=== PATIENT | male | born 1965 | race Caucasian/White ===

== ENCOUNTER 2022-11-26 15:38 | Outpatient (CLI) | payer MEDICAID, SELFPAY | END 2022-11-26 15:39 | disposition home or self-care (01) | LOC: AMB 11-30 13:29 | PROVIDERS: PCP Family Medicine; Visit Provider Family Medicine | DX: F10.129 Alcohol abuse with intoxication, unspecified (principal) | CPT/HCPCS: A0425; A0427 ==

== ENCOUNTER 2023-04-26 20:29 | Outpatient (CLI) | payer MEDICAID, SELFPAY | END 2023-04-26 20:30 | disposition home or self-care (01) | LOC: AMB 04-30 16:41 | PROVIDERS: PCP Family Medicine; Visit Provider Family Medicine | DX: R06.09 Other forms of dyspnea (principal) | CPT/HCPCS: A0425; A0427 ==

== ENCOUNTER 2023-04-27 16:59 | Outpatient (CLI) | payer MEDICAID, SELFPAY | END 2023-04-27 17:00 | disposition home or self-care (01) | LOC: AMB 05-01 17:21 | PROVIDERS: PCP Family Medicine; Visit Provider Family Medicine | DX: R07.89 Other chest pain (principal); F10.129 Alcohol abuse with intoxication, unspecified | CPT/HCPCS: A0425; A0427 ==

== ENCOUNTER 2023-04-30 19:39 | Outpatient (CLI) | payer MEDICAID, SELFPAY | END 2023-04-30 19:40 | disposition home or self-care (01) | LOC: AMB 05-04 11:45 | PROVIDERS: PCP Family Medicine; Visit Provider Family Medicine | DX: F10.129 Alcohol abuse with intoxication, unspecified (principal); F91.9 Conduct disorder, unspecified | CPT/HCPCS: A0425; A0429 ==

== ENCOUNTER 2023-04-30 20:05 | Emergency (ER) | payer MEDICAID, SELFPAY ==
--- NOTE | 2023-04-30 20:22 | ED_ITS ---
HPI - Alcohol General Chief Complaint: Alcohol/Intoxication Stated Complaint: Mental health Time Seen by Provider: 04/30/23 20:15 History of Present Illness HPI narrative: Patient is a 57-year-old gentle who was seen staggering around the road [address] in [place]. Since bystanders called for EMS he was found to be intoxicated and brought to the emergency room. Patient is belligerent and somewhat aggressive. He states he has not been taking any other medication but does admit to heavy drinking is found with half of 5th of vodka on him. No other complaints or concerns are noted. Related Data Home Medications Medication Instructions Recorded Confirmed celecoxib 200 mg capsule 200 mg PO BID 09/07/22 cholecalciferol (vitamin D3) 125 125 mcg PO QDAY 09/07/22 mcg (5,000 unit) capsule pantoprazole 40 mg tablet,delayed 40 mg PO QDAY 09/07/22 release rosuvastatin 10 mg tablet 10 mg PO QDAY 09/07/22 sumatriptan succinate 100 mg tablet See Rx Instructions PO .COMPLEX 09/07/22 Previous Rx's Medication Instructions Recorded tamsulosin 0.4 mg capsule 0.4 mg PO ONCE #90 caps 08/18/22 budesonide-formoterol HFA 160 2 puff inhalation BID #10.2 grams 09/07/22 mcg-4.5 mcg/actuation aerosol inhaler (Symbicort) cyanocobalamin (vitamin B-12) 1,000 mcg PO QDAY #30 tabs 09/07/22 1,000 mcg tablet duloxetine 60 mg capsule,delayed 120 mg (2 x 60 mg) PO QDAY #60 caps 09/07/22 release magnesium oxide 400 mg PO BID #60 tabs 09/07/22 naltrexone 50 mg tablet 100 mg (2 x 50 mg) PO QDAY #60 tabs 09/07/22 thiamine HCl (vitamin B1) 100 mg 100 mg PO QDAY #30 tabs 09/07/22 tablet gabapentin 300 mg capsule 300 mg PO TID #30 caps 10/23/22 albuterol sulfate 90 mcg/actuation 2 puff inhalation Q4-6H PRN 11/20/22 aerosol inhaler (Ventolin HFA) shortness of breath or wheezing #8.5 grams buspirone 30 mg tablet 30 mg PO BID #60 tabs 11/23/22 peg 3350-electrolytes 236 240 ml PO Q10M #4,000 mL 01/13/23 gram-22.74 gram-6.74 gram-5.86 gram solution (Golytely) potassium chloride 20 mEq 20 meq PO DAILY Hypokalemia #14 04/30/23 tablet,extended release tabs Allergies Allergy/AdvReac Type Severity Reaction Status Date / Time No Known Drug Allergies Allergy Verified 09/09/22 11:47 Review of Systems Status of ROS Reports: 10 or more systems reviewed and unremarkable except as noted in History and below [facility] Medical History (Updated 04/30/23 @ 23:23 by Benito Allan MD) Hypokalemia ?E87.6 - Hypokalemia (ICD-10) Alcoholism ?F10.20 - Alcohol dependence, uncomplicated (ICD-10) Mild intermittent asthma ?J45.20 - Mild intermittent asthma, uncomplicated (ICD-10) Malignant neoplasm of prostate (2007) ?C61 - Malignant neoplasm of prostate (ICD-10) Impotence ?N52.9 - Male erectile dysfunction, unspecified (ICD-10) Generalized anxiety disorder ?F41.1 - Generalized anxiety disorder (ICD-10) Gastroesophageal reflux disease ?K21.9 - Gastro-esophageal reflux disease without esophagitis (ICD-10) Dyslipidemia ?E78.5 - Hyperlipidemia, unspecified (ICD-10) Depression ?F32.A - Depression, unspecified (ICD-10) Compression fracture of L1 vertebra (2019) ?S32.010A - Wedge compression fracture of first lumbar vertebra, initial encounter for closed fracture (ICD-10) Cluster headaches ?G44.009 - Cluster headache syndrome, unspecified, not intractable (ICD-10) Chronic pain ?G89.29 - Other chronic pain (ICD-10) Pelvic floor instability ?M62.89 - Other specified disorders of muscle (ICD-10) Vitamin D deficiency ?E55.9 - Vitamin D deficiency, unspecified (ICD-10) Suicide attempt by inadequate means ?X83.8XXA - Intentional self-harm by other specified means, initial encounter (ICD-10) Steatosis of liver ?K76.0 - Fatty (change of) liver, not elsewhere classified (ICD-10) Osteopenia ?M85.80 - Other specified disorders of bone density and structure, unspecified site (ICD-10) Neuropathy ?G62.9 - Polyneuropathy, unspecified (ICD-10) Inguinal hernia ?K40.90 - Unilateral inguinal hernia, without obstruction or gangrene, not specified as recurrent (ICD-10) History of orthostatic hypotension ?Z86.79 - Personal history of other diseases of the circulatory system (ICD- 10) History of opioid abuse ?F11.11 - Opioid abuse, in remission (ICD-10) History of nuclear stress test (02/2018) ?Z92.89 - Personal history of other medical treatment (ICD-10) History of malignant neoplasm of prostate ?Z85.46 - Personal history of malignant neoplasm of prostate (ICD-10) Dysfunction of rotator cuff of both shoulders ?M67.911 - Unspecified disorder of synovium and tendon, right shoulder (ICD- 10) ?M67.912 - Unspecified disorder of synovium and tendon, left shoulder (ICD- 10) Ankylosing spondylitis (2016) ?M45.9 - Ankylosing spondylitis of unspecified sites in spine (ICD-10) Surgical History (Updated 05/07/22 @ 07:09 by Ashley Liao MD) Status post correction of deviated nasal septum (2008) ?Z98.890 - Other specified postprocedural states (ICD-10) History of umbilical hernia repair (01/16/19) ?Z98.890 - Other specified postprocedural states (ICD-10) ?Z87.19 - Personal history of other diseases of the digestive system (ICD-10) History of prostatectomy (2007) ?Z90.79 - Acquired absence of other genital organ(s) (ICD-10) History of penile implant (07/2020) ?Z96.0 - Presence of urogenital implants (ICD-10) History of knee surgery (2008) ?Z98.890 - Other specified postprocedural states (ICD-10) History of hand surgery (2017) ?Z98.890 - Other specified postprocedural states (ICD-10) Family History (Updated 02/25/23 @ 11:06 by Nydia Morales) Sister Depression Father Migraine headache Prostate cancer Brother Prostate cancer Mother Lewy body dementia Social History (Updated 04/24/22 @ 12:13 by Urbano Lambert) Narrative: alcohol dependence- moderate or severe use disorder, no alcohol 1 month, DBT therapy twice a week exercises regularly- walks daily non-smoker- quit 30 yo, hx 8 pack years single, works in [employer], no kids, lives with dad How often do you have a drink containing alcohol: 4 or more times a week How many standard drinks containing alcohol do you have on a typical day: 10 or more How often do you have six or more drinks on one occasion: Daily or almost daily AUDIT-C Alcohol total score: 12 Non-prescribed substance use: denies use Exam Narrative: Exam Narrative: EXAM GENERAL: Patient appears to be intoxicated EYES: No scleral icterus. LYMPH: No supraclavicular or cervical lymphadenopathy. SKIN: Visible skin seen during exam normal or with benign process only. EXT: No dependent lower extremity pedal edema. HEART: Regular rate and rhythm with no murmurs, rubs, or gallops. LUNGS: Clear to auscultation bilaterally with no crackles or wheezes. ABD: Soft, non tender, non distended. PSYCH: Good eye contact, speech is not pressured. Other than intoxication cranial nerves 2-12 grossly intact no focal defects. Course Course Hospital Course: Patient seen examined appropriate laboratory studies ordered. MDM - Alcohol MDM Narrative Medical decision making narrative: Patient presents with acute alcohol intoxication blood alcohol 0.4. He also has elevation in his transaminases as seen with be with chronic alcoholism. Patient initially was belligerent but given the choice of going to retirement or staying for evaluation. He chose evaluation was noted to be hypokalemic and profoundly intoxicated. We did supplement his potassium I did send a prescription in to his pharmacy for potassium chloride 20 mEq daily with outpatient follow-up. He is counseled on alcohol abuse. I did recommend follow-up with primary care and did insist that he stay until morning in he was able to care for himself. He is observed for approximately 12 hours before discharge. He is leaving in stable condition. Differential Diagnosis Differential diagnosis: Likely alcohol intoxication and alcohol ketoacidosis Lab Data Labs: Lab Results 04/30/23 04/30/23 04/30/23 Range/Units 21:09 21:12 22:56 WBC 8.16 (4.50-11.00) K/uL RBC 3.45 L (4.30-5.90) m/uL Hgb 11.7 L (13.5-17.5) gm/dL Hct 34.5 L (37.0-53.0) % MCV 100 (80-100) fL MCH 34 (26-34) pg MCHC 34 (32-36) gm/dL RDW Coeff of Rachel 13.4 (11.5-15.5) % Plt Count 179 (140-440) K/uL Neut % (Auto) 52.0 (42.0-72.0) % Lymph % (Auto) 35.9 (20-44) % [place] % (Auto) 10.7 (0.0-11.0) % Eos % (Auto) 0.5 (0.0-7.0) % Baso % (Auto) 0.4 (0.0-3.0) % Neut # (Auto) 4.25 (1.7-7.0) K/uL Lymph # (Auto) 2.93 H (0.90-2.90) K/uL [place] # (Auto) 0.90 (0.00-0.90) K/UL Eos # (Auto) 0.04 (0.00-0.50) K/uL Baso # (Auto) 0.03 (0.00-0.30) K/uL Abs Immat Gran (auto) 0.04 (0.00-0.30) K/uL Imm/Tot Granulo (auto) 0.5 % Sodium 147 (135-149) mmol/L Potassium 2.9 L* (3.6-5.1) mmol/L Chloride 108 (96-114) mmol/L Carbon Dioxide 28 (20-32) mmol/L BUN 18 (7-30) mg/dL Creatinine 0.7 (0.5-1.5) mg/dL Estimated GFR 107 ml/min Glucose 122 H (60-115) mg/dL Calcium 9.1 (8.4-10.6) mg/dL Total Bilirubin 0.4 (0.1-1.5) mg/dL AST 61 H (12-35) U/L ALT 55 H (4-50) U/L Alkaline Phosphatase 92 (40-150) U/L Total Protein 6.7 (6.0-8.3) g/dL Albumin 3.8 (3.3-5.0) g/dL Salicylates < 1.0 L (1.0-10) mg/dL Urine Opiates Screen Negative (Negative) Ur Oxycodone Screen Negative (Negative) Urine Methadone Screen Negative (Negative) Ur Propoxyphene Screen Negative (Negative) Acetaminophen < 10.0 L (10.0-30.0) ug/mL Ur Barbiturates Screen Negative (Negative) U Tricyclic Antidepress Negative (Negative) Ur Phencyclidine Scrn Negative (Negative) Ur Amphetamines Screen Negative (Negative) U Methamphetamines Scrn Negative (Negative) U Benzodiazepines Scrn Negative (Negative) Urine Cocaine Screen Negative (Negative) U Marijuana (THC) Screen Negative (Negative) Ur Drug Screen Comment See Note Ethyl Alcohol 0.40 H* (0.01-0.03) % Discharge Plan Discharge Clinical Impression: Alcohol intoxication Patient Disposition: Home, Self-Care Condition: Stable Instructions: Abuse of Alcohol (ED) Additional Instructions: Abstain from alcohol Eat 3 regular meals per day Potassium supplement as directed Follow-up with your doctor in the next week. Activity Level: No Restrictions Discharge Diet: Regular Prescriptions: New potassium chloride 20 mEq tablet extended release 20 meq PO DAILY Qty: 14 2RF No Action tamsulosin 0.4 mg capsule 0.4 mg PO ONCE Qty: 90 0RF celecoxib 200 mg capsule 200 mg PO BID cholecalciferol (vitamin D3) 125 mcg (5,000 unit) capsule 125 mcg PO QDAY pantoprazole 40 mg tablet,delayed release (DR/EC) 40 mg PO QDAY rosuvastatin 10 mg tablet 10 mg PO QDAY sumatriptan succinate 100 mg tablet See Rx Instructions PO .COMPLEX Rx Instructions: take 1 tab at onset of headache; if no relief, may repeat 1 tab after at least 2 hrs; max = 2 tabs/24 hrs PO cyanocobalamin (vitamin B-12) 1,000 mcg tablet 1,000 mcg PO QDAY Qty: 30 0RF duloxetine 60 mg capsule,delayed release(DR/EC) 120 mg PO QDAY Qty: 60 0RF naltrexone 50 mg tablet 100 mg PO QDAY Qty: 60 0RF budesonide-formoterol [Symbicort] 160-4.5 mcg/actuation HFA aerosol inhaler 2 puff inhalation BID Qty: 10.2 0RF magnesium oxide 400 mg magnesium tablet 400 mg PO BID Qty: 60 0RF thiamine HCl (vitamin B1) 100 mg tablet 100 mg PO QDAY Qty: 30 0RF gabapentin 300 mg capsule 300 mg PO TID Qty: 30 0RF albuterol sulfate [Ventolin HFA] 90 mcg/actuation HFA aerosol inhaler 2 puff inhalation Q4-6H PRN (Reason: shortness of breath or wheezing) Qty: 8.5 0RF buspirone 30 mg tablet 30 mg PO BID Qty: 60 2RF peg 3350-electrolytes [Golytely] 236-22.74-6.74 -5.86 gram recon soln 240 ml PO Q10M Qty: 4000 0RF Rx Instructions: Follow colonoscopy prep instructions given in clinic. Follow Up/Referrals: Ashley Liao MD [Primary Care Provider] - Stand Alone [facility] Info [facility]
--- NOTE | 2023-04-30 20:53 | ED.NURSE ---
pt refused lab draw
[2023-04-30 21:17] LABS: Basophils Absolute Auto 0.03 K/uL (0.00-0.30); Basophils Percent Auto 0.4 % (0.0-3.0); Eosinophils Absolute Auto 0.04 K/uL (0.00-0.50); Eosinophils Percent Auto 0.5 % (0.0-7.0); Hematocrit 34.5 % (37.0-53.0); Hemoglobin* 11.7 gm/dL (13.5-17.5); Immature Granulocytes Abs Auto 0.04 K/uL (0.00-0.30); Immature Granulocytes Pct Auto 0.5 %; Lymphocytes Absolute Auto 2.93 K/uL (0.90-2.90); Lymphocytes Percent Auto 35.9 % (20-44); Mean Corpuscular HGB Conc 34 gm/dL (32-36); Mean Corpuscular Hemoglobin 34 pg (26-34); Mean Corpuscular Volume 100 fL (80-100); Monocytes Percent Auto 10.7 % (0.0-11.0); Neutrophils Absolute Auto 4.25 K/uL (1.7-7.0); Platelet Count* 179 K/uL (140-440); RDW Coefficient of Variation % 13.4 % (11.5-15.5); Red Blood Count 3.45 m/uL (4.30-5.90); White Blood Count* 8.16 K/uL (4.50-11.00)
[2023-04-30 21:31] LABS: Albumin* 3.8 g/dL (3.3-5.0); Chloride* 108 mmol/L (96-114); Sodium* 147 mmol/L (135-149)
[2023-04-30 21:33] LABS: Aspartate Amino Transferase* 61 U/L (12-35); Bilirubin Total* 0.4 mg/dL (0.1-1.5); Carbon Dioxide* 28 mmol/L (20-32); Creatinine* 0.7 mg/dL (0.5-1.5); Estimated Glomerular Filt Rate 107 ml/min
[2023-04-30 21:34] LABS: Alanine Aminotransferase* 55 U/L (4-50); Alkaline Phosphatase* 92 U/L (40-150); Blood Urea Nitrogen* 18 mg/dL (7-30); Calcium* 9.1 mg/dL (8.4-10.6); Glucose* 122 mg/dL (60-115); Total Protein* 6.7 g/dL (6.0-8.3)
[2023-04-30 21:47] LABS: Acetaminophen* < 10.0 ug/mL (10.0-30.0); Potassium* 2.9 mmol/L (3.6-5.1); Salicylate* < 1.0 mg/dL (1.0-10)
[2023-04-30 21:49] LABS: Slide Review Reflex No
[2023-04-30] MEDS: POTASSIUM CHLORIDE 10 MEQ CAPSULE ER 20 MEQ PO (21:57)
[2023-04-30 23:11] LABS: Amphetamine Screen Urine Negative (Negative); Barbiturate Screen Urine Negative (Negative); Benzodiazepines Screen Urine Negative (Negative); Cannabinoid Screen Urine Negative (Negative); Cocaine Screen Urine Negative (Negative); Methadone Screen Urine Negative (Negative); Methamphetamines Screen Urine Negative (Negative); Opiate Screen Urine Negative (Negative); Oxycodone Screen Urine Negative (Negative); Phencyclidine Screen Urine Negative (Negative); Tricyclic Antidepressant Urine Negative (Negative)
--- NOTE | 2023-05-01 00:05 | ED.NURSE ---
Patient states that he does not want to go to Detox, patient would like to walk home in the morning. MD notifed. Per MD patient to sleep in the ED tonight and be discharged in the AM.
--- NOTE | 2023-05-01 06:22 | ED.NURSE ---
pt ambulated to restroom with steady gait.
== END 2023-05-01 07:15 | disposition home or self-care (01) ==
PROVIDERS: Emergency Provider Internal Medicine; PCP Family Medicine
DX: F10.129 Alcohol abuse with intoxication, unspecified (principal)
CPT/HCPCS: 36415; 80053; 80143; 80179; 80306; 82077; 85025; 99283; A9270

== ENCOUNTER 2024-03-24 14:00 | Outpatient (CLI) | payer MEDICAID, SELFPAY | END 2024-03-24 14:01 | disposition home or self-care (01) | PROVIDERS: PCP Family Medicine; Visit Provider Family Medicine | DX: E87.6 Hypokalemia (principal); E55.9 Vitamin D deficiency, unspecified; M85.80 Other specified disorders of bone density and structure, unspecified site; K76.0 Fatty (change of) liver, not elsewhere classified; F10.20 Alcohol dependence, uncomplicated; F41.1 Generalized anxiety disorder; F32.A Depression, unspecified | CPT/HCPCS: 80053; 80061; 82306; 82607; 84443 ==